=== PATIENT | female | born 1990 | race Caucasian/White ===

== ENCOUNTER 2019-10-30 13:48 | Inpatient (IN) | payer OTHER ==
[~2019-10-30] VITALS: Ht 160 cm; Wt 3.2 kg
[~2019-10-30 13:48] MED LIST: INFED50 MG/ML IJ
[2019-11-01] MEDS ORDERED: PRENATAL CAPLE1 EAC1 PO (07:51)
== END 2019-11-04 13:22 | disposition home or self-care (01) | DRG 785 ==
LOC: SURH 11-01 07:00 → O/R 11-01 11:32 → OB/GYN 11-01 11:32 → SURH 11-01 12:46 → OB/GYN 11-01 13:17
PROVIDERS: ADMIT Obstetrics & Gynecology
PROC: 0UL70ZZ Occlusion of Bilateral Fallopian Tubes, Open Approach (ICD-10-PCS; 2019-11-01)
PROC: 4A1HXCZ Monitoring of Products of Conception, Cardiac Rate, External Approach (ICD-10-PCS; 2019-11-01)
PROC: 10D00Z1 Extraction of Products of Conception, Low, Open Approach (ICD-10-PCS; principal; 2019-11-01 07:00)
DX: O34.211 Maternal care for low transverse scar from previous cesarean delivery (principal); O99.02 Anemia complicating childbirth; D64.89 Other specified anemias; Z3A.38 38 weeks gestation of pregnancy; Z37.0 Single live birth; Z30.2 Encounter for sterilization